=== PATIENT | male | born 1975 | race African-American/Black ===

== ENCOUNTER 2017-09-22 14:29 | Emergency (ER) | payer OTHER ==
[~2017-09-22] VITALS: Ht 175.3 cm; Wt 96.2 kg
--- NOTE | 2017-09-22 14:41 | PHYS DOC ---
Past History Past Medical History: No Pertinent History Smoking: Non-smoker Adult General Chief Complaint Chief Complaint: LACERATION/AVULSION HPI HPI 42-year-old Male patient states a pallet of 200 pounds fell on his right middle finger while he was wearing gloves at work. Patient complaining of laceration and severe pain in his finger with mild numbness. Patient denies other injuries and fever and chills. Review of Systems Review of Systems Constitutional: Denies fever or chills [] Eyes: Denies change in visual acuity, redness, or eye pain [] HENT: Denies nasal congestion or sore throat [] Respiratory: Denies cough or shortness of breath [] Cardiovascular: No additional information not addressed in HPI [] GI: Denies abdominal pain, nausea, vomiting, bloody stools or diarrhea [] : Denies dysuria or hematuria [] Musculoskeletal: Denies back pain, reports joint pain [] Integument: Denies rash or skin lesions [] Neurologic: Denies headache, focal weakness or sensory changes [] Endocrine: Denies polyuria or polydipsia [] All other systems were reviewed and found to be within normal limits, except as documented in this note. Current Medications Current Medications Current Medications Medications (Trade) Dose Ordered Sig/Dafne Start Time Stop Time Status Last Admin Dose Admin Morphine Sulfate (Morphine 4mg Syringe) 4 mg 1X ONCE 09/22/17 14:45 09/22/17 14:46 UNV Physical Exam Physical Exam Constitutional: Well developed, well nourished, moderate distress, non-toxic appearance. [] HENT: Normocephalic, atraumatic, bilateral external ears normal, oropharynx moist, no oral exudates, nose normal. [] Eyes: PERRLA, EOMI, conjunctiva normal, no discharge. [] Neck: Normal range of motion, no tenderness, supple, no stridor. [] Cardiovascular:Heart rate regular rhythm, no murmur [] Lungs & Thorax: Bilateral breath sounds clear to auscultation [] Skin: Warm, dry, no erythema, no rash. [] Back: No tenderness, no CVA tenderness. [] Extremities: Right middle finger with crush injury and satellite laceration of tip of finger with moderate tenderness Neurologic: Alert and oriented X 3, normal motor function, normal sensory function, no focal deficits noted. [] Psychologic: Affect normal, judgement normal, mood normal. [] EKG EKG [] Radiology/Procedures Radiology/Procedures [] Course & Med Decision Making Course & Med Decision Making Pertinent Labs and Imaging studies reviewed. (See chart for details) [] Dragon Disclaimer Dragon Disclaimer This electronic medical record was generated, in whole or in part, using a voice recognition dictation system. Departure Departure: Impression: Primary Impression: Open fracture of distal phalanx of right middle finger Additional Impression: Laceration of middle finger of right hand without complication Disposition: 01 HOME, SELF-CARE (police custody at 1640) Condition: IMPROVED Patient Instructions: Finger Fracture Additional Instructions: Follow-up with hand specialist in one or 2 days Scripts Naproxen (NAPROSYN) 500 Mg Tablet 1 TAB PO BID, #20 TAB 1 Refill Prov: GRACIA ZHANG MD 09/22/17 Tramadol Hcl (ULTRAM) 50 Mg Tablet 50 MG PO PRN Q6HRS Y for PAIN, #14 TAB Prov: GRACIA ZHANG MD 09/22/17 Cephalexin (KEFLEX) 500 Mg Capsule 1 CAP PO TID, #30 CAP Prov: GRACIA ZHANG MD 09/22/17 Procedure - 1630:Under local anesthesia with 1% lidocaine 2 ML digital block of right middle finger was done and satellite laceration of tip of middle finger was approximated with 4 stitches of 4-0 Prolene. Nonadhesive dressing and aluminium foam splint was applied by ER. Patient tolerated the procedure well. Problem Qualifiers GRACIA ZHANG MD Sep 22, 2017 14:41
[2017-09-22] MEDS ORDERED: TETANUS AND DIPHTHERIA TOX/PF 0.5 ML VIAL. VAX IM ONE (14:45)
[2017-09-22] MEDS ORDERED: MORPHINE SULFATE 4 MG/ML DISP.SYRIN. IM ONE (14:45)
[2017-09-22] MEDS ORDERED: ceFAZolin IM 1 GM VIAL IM ONE (15:30)
--- NOTE | 2017-09-22 15:30 | RAD ---
3 views right third finger 09/22/2017 4:35 PM Indication: injury RT 3RD FINGER Comparison: None Findings: There is a comminuted fracture of the third distal phalangeal tuft. Displacement of fracture fragments noted. Overlying soft tissue defect, with abnormal gas within the soft tissues is noted consistent with laceration, raises concern for open fracture. The articular surface is intact. No dislocation is seen. No definitive radiopaque foreign bodies are identified. Impression: Acute traumatic comminuted fracture of the third distal phalangeal tuft with overlying soft tissue defect raising concern for open fracture.
[2017-09-22 16:39] VITALS: BP 165/92
[2017-09-22] MEDS ORDERED: TRAM-48 PO (16:47)
[2017-09-22] MEDS ORDERED: CEPH-264 PO (16:47)
[2017-09-22] MEDS ORDERED: NAPR-683 PO (16:47)
== END 2017-09-22 16:55 | disposition home or self-care (01) ==
LOC: ER 14:29 → EEVIPCON 14:29 → ER 16:55
DX: S62.632B Displaced fracture of distal phalanx of right middle finger, initial encounter for open fracture (principal); W20.8XXA Other cause of strike by thrown, projected or falling object, initial encounter; Y93.89 Activity, other specified; Y99.8 Other external cause status; Y92.89 Other specified places as the place of occurrence of the external cause
CPT/HCPCS: 29130; 73140; 90471; 90714; 96372; 99284; J0690; J2270